=== PATIENT | male | born 1980 | race Two or more races ===

== ENCOUNTER 2017-02-24 00:29 | Emergency (ER) | payer BC ==
[~2017-02-24] VITALS: Ht 172.7 cm; Wt 95.0 kg
[2017-02-24] MEDS ORDERED: SODIUM CHLORIDE 0.9% 1,000 ML IV ONE (02:09)
[2017-02-24 02:24] LABS: BASOPHILS % 0.8 % (0.0-2.0); EOSINOPHILS % 3.7 % (0.0-5.0); HEMATOCRIT. 41.8 % (42.0-52.0); HEMOGLOBIN. 14.3 g/dL (14.0-18.0); LYMPHOCYTES % 10.2 % (20.0-50.0); MEAN CORPUSCULAR HGB CONC 34.3 g/dL (31.0-37.0); MEAN CORPUSCULAR VOLUME 84.4 fL (80.0-94.0); MEAN PLATELET VOLUME 8.7 fl (7.4-10.4); MONOCYTES % 12.8 % (2.0-8.0); NEUTROPHILS % 72.5 % (40.0-76.0); PLATELET 270 x1000/uL (130-400); RED BLOOD CELL COUNT 4.95 mill/uL (4.7-6.1); RED CELL DISTRIBUTION WIDTH 12.5 % (11.6-14.6)
[2017-02-24 02:31] LABS: CHLORIDE 102 mEq/L (98-107); INDEX HEMOLYSI 1 (1-3); INDEX ICTERIC 1 (1-4); INDEX LIPEMIC 1 (1-3)
[2017-02-24 02:35] LABS: D-DIMER 0.51 mg/L FEU (<0.50); INR 1.1; PARTIAL THROMBOPLASTIN TIME 32.4 sec (24.0-34.0); PROTHROMBIN TIME 11.1 sec
[2017-02-24 02:37] LABS: ANION GAP 11; CALCIUM 8.6 mg/dL (8.5-10.1); CARBON DIOXIDE 29 mEq/L (21-32); eGFR > 60 mL/min (>60)
[2017-02-24 02:49] LABS: UREA NITROGEN BLOOD 4 mg/dL (7-21)
[2017-02-24] MEDS ORDERED: CEFTRIAXONE 1 G PREMIX 50 ML IV ONE (03:45)
[2017-02-24] MEDS ORDERED: AZITHROMYCIN 500 MG in DEXT 5% WATER 250 ML IV STA (03:45)
[2017-02-24 06:12] VITALS: BP 131/75
== END 2017-02-24 07:02 | disposition home or self-care (01) ==
LOC: ER 00:30
DX: J18.9 Pneumonia, unspecified organism (principal); R03.0 Elevated blood-pressure reading, without diagnosis of hypertension; R94.31 Abnormal electrocardiogram [ECG] [EKG]; J45.909 Unspecified asthma, uncomplicated; Z91.013 Allergy to seafood
CPT/HCPCS: 36415; 71010; 80048; 85025; 85379; 85610; 85730; 87040; 93005; 96361; 96365; 96366; 96368; 99285; J0456; J0696; J7030; Z7610; J7060